=== PATIENT | female | born 1965 | race Caucasian/White ===

== ENCOUNTER 2022-02-25 11:00 | Outpatient (RCR) | payer OTHER | END 2022-03-02 | disposition home or self-care (01) | LOC: WSOH | DX: M70.831 Other soft tissue disorders related to use, overuse and pressure, right forearm (principal); M70.821 Other soft tissue disorders related to use, overuse and pressure, right upper arm; Y99.0 Civilian activity done for income or pay; R56.9 Unspecified convulsions | CPT/HCPCS: 24091; A6549 ==